=== PATIENT | female | born 1945 | race Caucasian/White ===

== ENCOUNTER 2020-04-17 08:49 | Observation (INO) | payer MEDICARE ==
[~2020-04-17] VITALS: Ht 157.5 cm; Wt 69.4 kg
[~2020-04-17 08:49] MED LIST: ASPIR 8181 M1 PO; BENADRYL25 MG PO; CIPRO500 MG PO; CLARITIN10 M2 PO; FLAGYL500 MG PO; FLONASE 0.05%50 MCG NASAL; MULTIVITAMINS1 EAC7 PO; NORCO 5-325 TA1 EACH PO; ZOFRAN ODT4 MG PO; [UNRECOGNIZED DRUG - REMARK] PO
[2020-04-17 08:58] VITALS: BP 207/81
[2020-04-17 10:13] LABS: URINE BLOOD TRACE (Negative); URINE CLARITY CLEAR; URINE COLOR YELLOW; URINE GLUCOSE-RANDOM NEGATIVE (Negative); URINE KETONES NEGATIVE (Negative); URINE LEUKOCYTES-REFLEX NEGATIVE (Negative); URINE NITRITE-REFLEX NEGATIVE (Negative); URINE PROTEIN 1+ (Negative)
[2020-04-17 10:17] LABS: ICTOTEST (BILI CONFIRMATORY) Negative (Negative); URINE BILIRUBIN 1+ (Negative)
[2020-04-17 10:19] LABS: ABSOLUTE BASOPHILS 0.1 thou/uL (0.0-0.2); ABSOLUTE LYMPHOCYTES 1.2 thou/uL (0.8-5.3); ABSOLUTE MONOCYTES 0.4 thou/uL (0.0-1.2); ABSOLUTE NEUTROPHILS 6.4 thou/uL (1.6-8.1); BASOPHILS 0.9 %; EOSINOPHILS 0.3 %; HEMATOCRIT 44.5 % (37.0-47.0); HEMOGLOBIN 15.9 gm/dL (12.0-15.0); LYMPHOCYTES 14.2 %; MCH 35.7 pg (26.0-34.0); MCHC 35.8 g/dL (28.0-37.0); MCV 99.6 fL (80.0-100.0); MONOCYTES 5.4 %; MPV 6.9 fl. (7.2-11.1); NUCLEATED RBCS 0 /100WBC; PLATELET COUNT* 218 thou/uL (150-400); POLYS 79.2 %; RBC 4.46 mil/uL (4.20-5.00); RDW-CV 12.5 % (10.5-14.5); WBC 8.1 thou/uL (4.0-11.0)
[2020-04-17 10:34] LABS: CALCIUM 8.6 mg/dL (8.5-10.1); POTASSIUM 3.7 mmol/L (3.5-5.1)
[2020-04-17 10:36] LABS: APTT 29.2 Seconds (25.0-31.3)
[2020-04-17 10:45] LABS: ALBUMIN 4.5 g/dL (3.4-5.0); MAGNESIUM 1.9 mg/dL (1.8-2.4); TOTAL BILIRUBIN 0.8 mg/dL (<0.1-1.0); TOTAL PROTEIN 7.4 g/dL (6.4-8.2)
[2020-04-17 11:00] LABS: BE 1.6 mmol/L (-2 to +3); PCO2 35.4 mmHg (35.0-45.0); pH 7.465 (7.340-7.450)
--- NOTE | 2020-04-17 15:15 | EKG ---
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 : 1945 Requested By: Lydia Ortiz Order Number: [id number] MD: Raza Snyder Measurements Intervals Penn Laird Rate: 113 P: 66 CA: 175 QRS: 15 QRSD: 99 T: 34 QT: 326 QTc: 447 Interpretive Statements Sinus tachycardia Consider left atrial enlargement Baseline wander in lead(s) II,III,aVR,aVL,aVF Compared to ECG 07/22/2017 17:25:53 Sinus rate has increased Myocardial infarct finding no longer present Electronically Signed On 04-17-2020 15:15:40 CDT by Raza Snyder [email or web address] <ELECTRONICALLY SIGNED> By: Raza Snyder MD, [facility] 04/17/20 [phone] Raza Snyder MD, [facility] /EPI
[2020-04-17 16:40] VITALS: BP 128/52
[2020-04-17 17:00] VITALS: BP 156/70
--- NOTE | 2020-04-17 18:36 | NUR ---
PT ADMITTED ON TELE FLOOR AT 1630 REPORT RECEIVED FROM NURSE. PT IS AOX4 ON RA. 02 SATURATION 96% RA. VSS. IV FLUID INFUSING ORDERED. DENIES PAIN. CALL LIGHT AT REACH. MEDICATION GIVEN TO PT. WILL CONTINUE TO MONITOR PT.
[2020-04-17 21:41] VITALS: BP 133/65
[2020-04-18] VITALS: BP 142/46
[2020-04-18 04:00] VITALS: BP 148/50
[2020-04-18 05:32] LABS: HEMATOCRIT 37.1 % (37.0-47.0); MCH 36.6 pg (26.0-34.0); MCHC 36.3 g/dL (28.0-37.0); MCV 100.8 fL (80.0-100.0); MPV 7.3 fl. (7.2-11.1); RBC 3.68 mil/uL (4.20-5.00); RDW-CV 12.4 % (10.5-14.5); WBC 4.9 thou/uL (4.0-11.0)
[2020-04-18 05:37] LABS: HEMOGLOBIN 13.5 gm/dL (12.0-15.0)
--- NOTE | 2020-04-18 05:43 | NUR ---
PATIENT HAVING SOME ANXIETY SAYING SHE CANNOT BREATHE AND FEELS CONGESTED. O2 SAT IS 93-95%. ATIVAN GIVEN FOR ANXIETY DURING SHIFT TO HELP CALM FOR SLEEP. SHE IS ABLE TO GET TO THE RESTROOM ON HER OWN. SHE DID NOT REPORT ANY PAIN OR NAUSEA THIS SHIFT UPON SEVERAL ASSESSMENTS. ECHO PLANNED FOR FRIDAY. ON ROOM AIR, ALERT AND ORIENTED X4. RECEIVED ALL MEDS SCHEDULED. WILL CONTINUE TO FOLLOW PLAN OF CARE.
[2020-04-18 05:55] LABS: ALBUMIN 3.2 g/dL (3.4-5.0); CALCIUM 7.6 mg/dL (8.5-10.1); CREATININE 0.8 mg/dL (0.6-1.3); MAGNESIUM 1.8 mg/dL (1.8-2.4); POTASSIUM 3.5 mmol/L (3.5-5.1); TOTAL BILIRUBIN 0.9 mg/dL (<0.1-1.0); TOTAL PROTEIN 5.6 g/dL (6.4-8.2)
[2020-04-18 08:00] VITALS: BP 150/71
[2020-04-18 12:00] VITALS: BP 136/74
[2020-04-18 16:00] VITALS: BP 141/66; BP 142/76
--- NOTE | 2020-04-18 17:51 | NUR ---
CM COMPLETED INITIAL ASSESSMENT TO DISCUSS D/C PLANNING. PT LIVES AT HOME W/SPOUSE. PT HAS NO HX OF HH OR SNF. HOWEVER, PT MAY NEED HH ACCORD TO DOCTOR. PT IS INDEPENDENT W/ADLS. PT DRIVES AND IS ACTIVE. PT HAS NO DMES. CM TO CONT TO FOLLOW.
[2020-04-18 20:00] VITALS: BP 165/72
[2020-04-19] VITALS: BP 116/69
[2020-04-19 04:00] VITALS: BP 181/85
[2020-04-19 05:27] LABS: HEMATOCRIT 37.1 % (37.0-47.0); HEMOGLOBIN 13.2 gm/dL (12.0-15.0); MCHC 35.6 g/dL (28.0-37.0); MCV 101.1 fL (80.0-100.0); MPV 7.4 fl. (7.2-11.1); RBC 3.66 mil/uL (4.20-5.00); RDW-CV 12.5 % (10.5-14.5)
[2020-04-19 05:50] LABS: ALBUMIN 3.2 g/dL (3.4-5.0); CREATININE 0.8 mg/dL (0.6-1.3); MAGNESIUM 1.8 mg/dL (1.8-2.4); POTASSIUM 3.4 mmol/L (3.5-5.1); TOTAL BILIRUBIN 0.5 mg/dL (<0.1-1.0); TOTAL PROTEIN 5.7 g/dL (6.4-8.2)
[2020-04-19 08:00] VITALS: BP 156/82
--- NOTE | 2020-04-19 14:16 | 2DMMODE ---
[place] [address] 2 D/M-MODE ECHOCARDIOGRAM Name: JASON MEYER Room: [address] IN .Jonas.#: [id number] Admission: 04/19/20 Attend Phys: Winter Cardozo, Discharge: Date of : 43 Date of Service: 04/19/20 1416 Report #: [id number] THIS REPORT FOR: cc: JOANN - No family physician/PCP JOANN - No family physician/PCP Raza Snyder MD [facility] ~ APPROVED REPORT Study performed: 04/19/2020 13:23:29 EXAM: Comprehensive 2D, Doppler, and color-flow Echocardiogram Patient Location: In-Patient Room #: [facility] Status: routine BSA: 1.71 HR: 87 bpm BP: 148/50 mmHg Rhythm: NSR Other Information Study Quality: Good Indications Dyspnea 2D Dimensions IVSd: 11.86 (7-11mm) LVOT Diam: 19.47 (18-24mm) LVDd: 50.89 mm PWd: 10.16 (7-11mm) Ascending Ao: 31.46 (22-36mm) LVDs: 22.35 (25-40mm) Aortic Root: 29.41 mm Volumes Left Atrial Volume (Systole) LA ESV Index: 27.50 mL/m2 Aortic Valve AoV Peak Jose.: 1.59 m/s AO Peak Gr.: 10.10 mmHg LVOT Max P.45 mmHg AO Mean Gr.: 5.81 mmHg LVOT Mean P.25 mmHg LVOT Max V: 1.62 m/s AO V2 VTI: 32.25 cm LVOT Mean V: 0.92 m/s REDDY (VTI): 2.81 cm2 LVOT V1 VTI: 30.46 [place] [address] 2 D/M-MODE ECHOCARDIOGRAM Name: JASON MEYER Room: [address] IN ..#: [id number] Admission: 04/19/20 Attend Phys: Winter Cardozo, Discharge: Date of : 43 Date of Service: 04/19/20 1416 Report #: [id number] Mitral Valve E/A Ratio: 0.77 MV Decel. Time: 248.78 ms MV E Max Jose.: 0.84 m/s MV PHT: 72.15 ms MVA (PHT): 3.05 cm2 TDI E/Lateral E': 10.50 E/Medial E': 8.40 Medial E' Jose.: 0.10 m/s Lateral E' Jose.: 0.08 m/s Pulmonary Valve PV Peak Jose.: 1.19 m/s PV Peak Gr.: 5.66 mmHg Tricuspid Valve RAP Estimate: 5.00 mmHg TR Peak Gr.: 36.16 mmHg RVSP: 41.00 mmHg PA Pressure: 41.00 mmHg Left Ventricle The left ventricle is normal size. There is normal LV segmental wall motion. There is normal left ventricular wall thickness. Left ventricular systolic function is normal. The left ventricular ejection fraction is within the normal range. LVEF is 65-70%. Grade I - abnormal relaxation pattern. Right Ventricle The right ventricle is normal size. The right ventricular systolic function is normal. Atria The left atrium size is normal. The right atrium size is normal. Aortic Valve Mild aortic valve sclerosis. Trace aortic regurgitation. There is no aortic valvular stenosis. Mitral Valve The mitral valve is normal in structure. Trace mitral regurgitation. No evidence of mitral valve stenosis. Tricuspid Valve The tricuspid valve is normal in structure. Mild tricuspid regurgitation. Moderate [place] [address] 2 D/M-MODE ECHOCARDIOGRAM Name: JASON MEYER Room: [address]#: [id number] Admission: 04/19/20 Attend Phys: Winter Cardozo, Discharge: Date of : 43 Date of Service: 04/19/20 1416 Report #: [id number] Pulmonic Valve The pulmonary valve is normal in structure. There is no pulmonic valvular regurgitation. Great Vessels The aortic root is normal in size. IVC is normal in size and collapses >50% with inspiration. Pericardium There is no pericardial effusion. <Conclusion> The left ventricle is normal size. Left ventricular systolic function is normal. The left ventricular ejection fraction is within the normal range. LVEF is 65-70%. Grade I - abnormal relaxation pattern. The right ventricle is normal size. The left atrium size is normal. Mild aortic valve sclerosis. Trace aortic regurgitation. There is no aortic valvular stenosis. The mitral valve is normal in structure. Tricupid valve is structurally normal Mild tricuspid regurgitation. Moderate pulmonary hypertension. IVC is normal in size and collapses >50% with inspiration. There is no pericardial effusion. There is normal LV segmental wall motion. <ELECTRONICALLY SIGNED> By: Raza Snyder MD, FACC 04/19/20 [phone] Raaz Snyder MD, FACC /INF
--- NOTE | 2020-04-19 16:10 | NUR ---
Possible for pt to be ready to dc tomorrow; SW to continue to follow to assist with safe dc planning of home wih spouse and maybe HH at dc to be arranged.
[2020-04-19 17:00] VITALS: BP 105/69
[2020-04-19] MEDS ORDERED: DOXYCYCLINE 10100 M2 PO (17:08)
[2020-04-19] MEDS ORDERED: MEDROL4 M1 PO (17:08)
[2020-04-19] MEDS ORDERED: PROAIR HFA8.5 GM INH (17:08)
[2020-04-19] MEDS ORDERED: ALPRAZOLAM 0.0.25 MG PO (17:12)
[2020-04-19 18:06] VITALS: BP 105/69
--- NOTE | 2020-04-19 19:55 | NUR ---
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 SHE WAS JUST FIXATED ON GETTING OUT OF HERE AND TEARFUL. INFORMED DR ZHAO. DC ORDERS RECEIVED. DISCHARGE EDUCATION PROVIDED. PT LEFT THE UNIT AT 1830 WITH HER .
--- NOTE | 2020-04-20 09:21 | CON ---
[address] [address] CONSULTATION Name: JASON MEYER Room: [address]R.#: [id number] Admission: 04/19/20 Attend Phys: Winter Cardozo MD Discharge: 04/19/20 Date of : 43 Report #: [id number] THIS REPORT FOR: //name// cc: JOANN - No family physician/PCP FAM - No family physician/PCP ~ THIS REPORT FOR: //name// CC: [facility] physician/PCP Winter Cardozo MD INDICATION: Progressive dyspnea on exertion and chest discomfort. HISTORY OF PRESENT ILLNESS: The patient is a very pleasant 74-year-old white female with no prior cardiac history. The patient was admitted through the Emergency Room yesterday with an episode of nausea and stomach upset, without true vomiting. The patient states that she was choking and gagging, but unable to vomit. She reports that she has had this infrequently. She also notes over the last several months, increasing dyspnea on exertion as well as paroxysmal nocturnal dyspnea, almost nightly. She denies any significant swelling or change in weight. She does have intermittent chest achiness. She was not sure whether this was associated with exertion or not. The symptoms usually last several minutes. Occasionally associated with some diaphoresis. Her most prominent symptom has been dyspnea. She denies any history of dyslipidemia, hypertension, diabetes or family history of coronary artery disease. She does smoke a half a pack of cigarettes daily. PAST MEDICAL HISTORY: 1. Paroxysmal atrial tachycardia as a young lady in her teens and 20s. PAST SURGICAL HISTORY: 1. Cholecystectomy. 2. x 2. 3. Basal cell removed from her nose. 4. Appendectomy. 5. Tonsillectomy. FAMILY HISTORY: The patient's father had a stroke, but there was no history of premature coronary artery disease. SOCIAL HISTORY: The patient is . She lives with her . 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 She smokes half a pack of cigarettes daily. She drinks a moderate amount of alcohol daily. ALLERGIES: [place] [address] CONSULTATION Name: JASON MEYER Room: [address]#: [id number] Admission: 04/19/20 Attend Phys: Winter Cardozo MD Discharge: 04/19/20 Date of : 43 Report #: [id number] HOME MEDICATIONS: None. REVIEW OF SYSTEMS: A 14-point review of systems is positive for cough that is nonproductive, occasional wheezing, palpitations, chest discomfort as outlined above, dyspnea on exertion, paroxysmal nocturnal dyspnea, history of heart murmur as a child, hyperthyroid in her 20s, seasonal allergies, medical allergies as outlined above, history of depression and anxiety. Some mild arthritis. She wears glasses. No acute visual changes. She has decreased hearing and she wears partial dentures. PHYSICAL EXAMINATION: VITAL SIGNS: Blood pressure 150/71, pulse is 84 and regular. GENERAL: This is a very pleasant elderly female in no distress. Mood and affect appropriate. HEENT: Extraocular muscles intact. Mucous membranes are moist. NECK: Shows no jugular venous distention. I do not appreciate carotid bruits. CHEST: Reveals diminished breath sounds throughout with prolonged expiration. I do not appreciate wheezes or rales. CARDIOVASCULAR: Reveals a regular rhythm with normal S1 and S2. I do not appreciate gallop or murmur. ABDOMEN: Reveals normal bowel sounds. The abdomen is soft, nontender. EXTREMITIES: Shows no edema. SKIN: Dry. LABORATORY DATA: A 12-lead EKG shows sinus rhythm without acute ST or T-wave abnormality. Troponins are negative x 3 sets. NT-proBNP was unremarkable. Chest x-ray shows no acute cardiopulmonary abnormality. IMPRESSION AND RECOMMENDATIONS: 1. Chest discomfort with some features to suggest possible angina. The patient has no history of documented coronary artery disease. At this point in time, I would be in favor of noninvasive stress testing. Further cardiac evaluation will be pending on the results of that study. 2. Dyspnea on exertion. The patient has significantly abnormal lung sounds on physical exam. I suspect she has some element of COPD. Could be an anginal equivalent. Stress testing ordered as outlined above. I am also ordering an echocardiogram to evaluate underlying left [place] [address] CONSULTATION Name: JASON MEYER Room: [address]#: [id number] Admission: 04/19/20 Attend Phys: Winter Cardozo MD Discharge: 04/19/20 Date of : 43 Report #: [id number] function. 3. Tobacco use. Smoking cessation advised. <ELECTRONICALLY SIGNED> By: Orville Leung MD, KIRILL 04/20/20 0921 1544 1558Miccata Leung MD, KIRILL /nt
--- NOTE | 2020-04-20 16:02 | CARDNUC ---
[place] [address] CARDIAC NUCLEAR IMAGING REPORT Name: MITCHJASON Emil Room: [address] Kimmy Urena#: [id number] Admission: 04/17/20 Attend Phys: Winter Cardozo, Discharge: 04/19/20 Date of : 43 Date of Service: 04/20/20 1602 Report #: [id number] THIS REPORT FOR: cc: FAM - No family physician/PCP FAM - No family physician/PCP Orville Leung MD [facility] ~ APPROVED REPORT Imaging Protocol: REST ONLY Study performed: 04/18/2020 15:05:00 Indication: Chest pain, Dyspnea Patient Location: In-Patient Stress Tech: Hilary Rose Stress Nurse: Giana Landa RN NM Tech:PAYAL Corona Ht: 5 ft 2 in Wt: 153 lbs BSA: 1.71 m2 BMI: 27.98 Rhythm: NSR Medical History Medical History: No history of CAD Medications: No cardiac meds Allergies: Ciprofloxacin, morphine, sulfa drugs Cardiac Risk Factors: Tobacco use Previous Cardiac Procedures: None Exercise History: Sedentary Resting Data Rest SPECT myocardial perfusion imaging was performed in supine position 30 minutes following the intravenous injection of 10.5 mCi of Tc-99m Sestamibi. Time of rest injection: 809 Date: 04/20/2020 The images were gated to evaluate regional wall motion and calculate left ventricular ejection fraction. Administration Route: IV Stress Test Details Stress Test: Patient did not complete the stress portion of the stress test. HR Max Heart Rate (APMHR): 145 bpm Target HR (85% APMHR): 123 [place] [address] CARDIAC NUCLEAR IMAGING REPORT Name: PURVIKAROLYNJASON Emil [address] [id number] Admission: 04/17/20 Attend Phys: Winter Cardozo, Discharge: 04/19/20 Date of : 43 Date of Service: 04/20/20 160 Report #: [id number] ECG Study Quality Study: Resting only Perfusion Resting perfusion images show uniform uptake of the radioisotope throughout the myocardium without significant defect. Wall Motion Resting gated images show normal LV systolic function with no evidence of wall motion abnormality. Nuclear Conclusion The stress portion of the test was not completed. Resting scan appeared fairly unremarkable. <ELECTRONICALLY SIGNED> By: Orville Leung MD, FACC 04/20/201601 01 1602 Orville Leung MD, FACC /INF
--- NOTE | 2020-04-20 21:36 | CON ---
[address] [address] CONSULTATION Name: MITCHSUZEY Emil Room: [address] Kimmy Urena#: [id number] Admission: 04/17/20 Attend Phys: Winter Cardozo MD Discharge: 04/19/20 Date of : 43 Report #: [id number] THIS REPORT FOR: //name// cc: JOANN - No family physician/PCP JOANN - No family physician/PCP ~ THIS REPORT FOR: //name// CC: JOANN physician/PCP Winter Cardozo DATE OF SERVICE: 04/19/2020 CONSULT REQUESTED BY: Dr. Cardozo. INDICATION FOR CONSULTATION: Longstanding dyspnea and ground-glass opacity in lungs. HISTORY OF PRESENT ILLNESS: This is a 74-year-old female with past medical history as mentioned below. The patient appears to have COPD but she has not been previously diagnosed. The patient has an extensive history of smoking and is a current smoker. The patient also has been in significant stress at home. The patient reports that there has been recent progressive increase in her shortness of breath. She has also had a cough. There is not much sputum production. On presentation, the patient also had epigastric pain, some of which came into the upper chest as well. This pain has now subsided. The patient does however report that she has had a longstanding history of clear nasal discharge from her nose, which has not changed recently. There is no sore throat. She is not febrile. She is no longer having any chest pain. There is no swelling of lower extremities. There is no calf pain, although she has had some varicose veins. The patient appears to have poor sleep hygiene, she has significantly disturbed sleep at night as well as sleepiness during the day, although she does not doze off unintentionally. She also has tiredness and fatigue during the day. She says what she is describing as fatigue may in fact be sleepiness. The patient says that she usually sleeps on her stomach. The patient says that she is anxious. She answered to the negative for 12 other questions asked for review of systems: The patient is reported to initially had a stomach upset and nausea. She did not have these complaints at this time. PAST MEDICAL HISTORY: Paroxysmal atrial tachycardia when young in her 20s, cholecystectomy, x 2, basal cell carcinoma removed from her nose, appendectomy and tonsillectomy. The patient has recently had an echocardiogram performed, which shows a left ventricular ejection fraction of 65-70% with mild elevation in right heart pressures [place] [address]. [place] [address] CONSULTATION Name: JASON MEYER Room: [address] Ayanna#: [id number] Admission: 04/17/20 Attend Phys: Winter Cardozo MD Discharge: 04/19/20 Date of : 43 Report #: [id number] SOCIAL HISTORY: There is an extensive history of smoking. The patient has smoked up to 2 packs a day at one point, she says that now she is down to only 7 or 8 cigarettes a day. She does drink alcohol daily. I am unable to quantify her alcohol intake exactly, no known history of illegal drug use. CURRENT MEDICATIONS: In [facility] reviewed. HOME MEDICATIONS: In [facility] reviewed. FAMILY HISTORY: Father had a stroke. ALLERGIES: REPORTED TO BE ALLERGIC TO SULFONAMIDE ANTIBIOTICS AND CIPRO. SHE HAS HAD EITHER AN ADVERSE REACTION OR ALLERGY TO MORPHINE. PHYSICAL EXAMINATION: GENERAL: Alert, awake and oriented, was mildly anxious, was walking around in the hallways with a pulse of around 80 at the time of my examination. VITAL SIGNS: Blood pressure has been labile from 116/69 to 181/85. She is afebrile, respiratory rate is 18. HEENT: Head is normocephalic and atraumatic. Pupils are equal and reactive. There is no throat erythema. Airway is Mallampati 4. NECK: Does not show raised JVP, asymmetry, mass or lymph nodes. CHEST: Symmetrical expansion on inspection and palpation. On auscultation, breath sounds are bilaterally decreased, but equal. There are occasional rales at bilateral lung bases. HEART: Regular. There is no murmur. ABDOMEN: Soft and nontender. EXTREMITIES: Lower extremities show minimal edema only. There is no calf tenderness. There are changes consistent with chronic venous insufficiency. SKIN: However, is dry and intact. NEUROLOGICAL: Moves all extremities bilaterally equally and spontaneously with no focal deficit identified. LABORATORY DATA: The patient's CBC as well as chemistries are in [facility] and these are reviewed. The patient's arterial blood gas, which initially did show mild hypoxemia on room air in [facility] reviewed. COVID-19 PCR as well as antigen are negative. Urinalysis is in [facility] reviewed. D-dimer was 0.45. The patient did have a CT chest with IV contrast, but not with PE protocol. Lung imaging is as below. I reviewed myself and compared with the previous CT of the abdomen and pelvis, no PE is mention in the report. The patient's D-dimer was not elevated as above. I reviewed the CT abdomen and pelvis report as well. ASSESSMENT AND PLAN: 1. Acute respiratory insufficiency/shortness of breath. In the background, the patient appears to have COPD as well as obstructive sleep apnea. There is a [address] [address] CONSULTATION Name: JASON MEYER Emil Room: [address] Kimmy Urena#: [id number] Admission: 04/17/20 Attend Phys: Winter Cardozo MD Discharge: 04/19/20 Date of : 43 Report #: [id number] small infiltrate in the right middle lobe and there is a significant component of stress in her complaints as well. At this time, the patient appears to be stable for discharge from a pulmonary point of view, would defer evaluation from a cardiac point of view to the Cardiology Service. Recommend obtaining an ambulatory pulse oximetry prior to her discharge. 2. Pulmonary infiltrates, most of these appear to be old scarring compared with the previous CT of the abdomen and pelvis; however, there is a small ground-glass infiltrate in the right mid zone, which is new. This is consistent with atypical or viral pneumonia. The patient notes that the patient's COVID-19 is negative. Considering that she has AN ALLERGY TO CIPROFLOXACIN, I would recommend treating her with azithromycin, doxycycline would be an alternate to azithromycin. I suggest a repeat CT in about 1 month. I will be happy to see her in a month and then evaluate further. 3. Chronic obstructive pulmonary disease. I suggest treating her with a prednisone taper and p.r.n. albuterol. Smoking cessation will be recommended. I can phone our office with it, decide upon her long-term therapy. Considering her history of significant allergies, I may consider Breo long-term. 4. Hypersomnia/sleep disturbances. It appears based on clinical grounds that she has obstructive sleep apnea, I offered to her to set up a sleep study now. The patient wants to hold off and discussed with me further on her next office visit and I will be happy to review this at that point. 5. Allergic rhinitis, I recommend Singulair 10 mg daily, long-term. This may help her breathing as well. We will review further in a month. Thanks for this consultation. <ELECTRONICALLY SIGNED> By: Kennedy Mcclendon MD 04/20/20 2136 1508 1834Agay Mcclendon MD /nt
--- NOTE | 2020-04-21 11:23 | CON ---
[address] [address] CONSULTATION Name: JASON MEYER Room: [address] Kimmy Urena#: [id number] Admission: 04/17/20 Attend Phys: Winter Cardozo MD Discharge: 04/19/20 Date of : 43 Report #: [id number] THIS REPORT FOR: //name// cc: JOANN - No family physician/PCP [facility] - No family physician/PCP ~ THIS REPORT FOR: //name// CC: [facility] physician/PCP Winter Cardozo DICTATED BY: Barbara Schwab [facility] DATE OF SERVICE: 04/18/2020 The patient does not have a PCP. Please note at the time of this dictation, the patient was seen and physically examined by myself. HISTORY OF PRESENT ILLNESS: This is a 74-year-old female who presented to the Emergency Room mainly with complaints of shortness of air. She states she had no nausea or vomiting and no abdominal pain at that particular time. She has never seen a GI doctor and does not plan on having any upper or lower scopes done at this time. The patient states she has longstanding anxiety, which has gotten worse over the last 5 years after she had resuscitated her at home and she cares for him now along with her [id number] mother as well. She has had lots of stressors related to this and 5 years ago, she started having a glass of wine or maybe 2 or a cocktail every night to help calm her nerves and to help her go to sleep at night. Otherwise, she states when she had her gallbladder out last year, she had a lot of explosive diarrhea, which has improved. She realized eating certain foods, makes it worse, but she would rather have that versus constipation. She states it is intermittent. She does not notice any bright red blood or any melanotic stool. She denies any issues with any acid reflux or difficulty swallowing or abdominal pain at this time. ALLERGIES: SULFA, MORPHINE, AND CIPRO. MEDICATIONS FROM HOME: None. PAST MEDICAL HISTORY: Anxiety. PAST SURGICAL HISTORY: Cholecystectomy. FAMILY HISTORY: Negative for any GI or female cancers. SOCIAL HISTORY: She will occasionally have smokes cigarettes. Alcohol daily, [place] [address] CONSULTATION Name: JASON MEYER Room: [address] Kimmy Urena#: [id number] Admission: 04/17/20 Attend Phys: Winter Cardozo MD Discharge: 04/19/20 Date of : 43 Report #: [id number] 1-2 drinks usually. Denies any illegal drug use. REVIEW OF SYSTEMS: Twelve-point review of systems is essentially negative except what is mentioned in the HPI. PHYSICAL EXAMINATION: VITAL SIGNS: Temperature 36.7, pulse 84, respirations 16, blood pressure 150/71. HEART: Regular rate and rhythm. LUNGS: Clear. ABDOMEN: Soft. Positive bowel sounds in all 4 quadrants with no masses or tenderness noted. LABORATORY DATA: Hemoglobin 13.5, white count 4.4, platelets 155. Lipase was 99. LFTs on admission were slightly elevated of ALT and AST. They have come down. Today total bilirubin 0.9, alkaline phosphatase 75, ALT 43, AST is 39. CT of the abdomen and pelvis shows diverticulosis and a midline ventral hernia. GFR is 70. IMPRESSION: 1. Bile acid diarrhea intermittently. 2. Anxiety. 3. Elevated LFTs, resolving. 4. Alcohol use regularly. PLAN: The patient does not want any GI intervention at this time and states she is not having any GI problems and will sign off. Thank you for allowing us to participate in this patient's care. Please do not hesitate to call with any questions in regard to this consult. Agree with above assessment and plan by Barbara Schwab. <ELECTRONICALLY SIGNED> By: Monty Seaman MD 04/21/20 1123 1022 1034Monty Seaman MD /nt
== END 2020-04-19 20:03 | disposition home or self-care (01) ==
LOC: M.ERS 08:49 → M.TBA-ER 14:09 → M.2W 14:09
PROVIDERS: Personal Emergency Response Attendant; ADMIT Internal Medicine; ATTEND Internal Medicine
DX: J96.01 Acute respiratory failure with hypoxia (principal); F41.9 Anxiety disorder, unspecified; R10.13 Epigastric pain; R11.0 Nausea; I47.1 Supraventricular tachycardia; E03.9 Hypothyroidism, unspecified; J44.9 Chronic obstructive pulmonary disease, unspecified; J30.9 Allergic rhinitis, unspecified; Z87.891 Personal history of nicotine dependence; Z79.899 Other long term (current) drug therapy; Z20.818 Contact with and (suspected) exposure to other bacterial communicable diseases

== ENCOUNTER 2021-10-08 19:59 | Observation (INO) | payer MEDICARE ==
[~2021-10-08] VITALS: Ht 160 cm; Wt 63.5 kg
--- NOTE | ~2021-10-08 | PROC ---
[address] [address] PROCEDURE REPORT Name: JASON MEYER Room: [address] IN ..#: [id number] Admission: 10/08/21 Attend Phys: Winter Cardozo MD Discharge: 10/10/21 Date of : 43 Report #: [id number] THIS REPORT FOR: cc: FAM - No family physician/PCP FAM - No family physician/PCP [facility],Medical Records Staff ~ For GI report, please see the Provation report in Perceptive 7 content. By: 0654Medical Records Staff JOSAFAT /DAWSON
--- NOTE | ~2021-10-08 | PROC ---
[address] [address] PROCEDURE REPORT Name: JASON MEYER Room: [address] IN ..#: [id number] Admission: 10/08/21 Attend Phys: Winter Cardozo MD Discharge: 10/10/21 Date of : 43 Report #: [id number] THIS REPORT FOR: cc: FAM - No family physician/PCP FAM - No family physician/PCP [facility],Medical Records Staff ~ For GI report, please see the Provation report in Perceptive 7 content. By: 0657Medical Records Staff SANDY /DAWSON
[~2021-10-08 19:59] MED LIST changes: +ALPRAZOLAM 0.0.25 MG PO; +DOXYCYCLINE 10100 M2 PO; +MEDROL4 M1 PO; +PROAIR HFA8.5 GM INH
[2021-10-08 20:12] VITALS: BP 155/68
[2021-10-08] MEDS ORDERED: BENADRYL25 MG PO (20:17)
[2021-10-08 20:50] LABS: URINE BILIRUBIN NEGATIVE (Negative); URINE BLOOD 1+ (Negative); URINE CLARITY CLEAR; URINE COLOR YELLOW; URINE GLUCOSE-RANDOM NEGATIVE (Negative); URINE KETONES 1+ (Negative); URINE LEUKOCYTES-REFLEX NEGATIVE (Negative); URINE NITRITE-REFLEX NEGATIVE (Negative); URINE PROTEIN 1+ (Negative); URINE SPECIFIC GRAVITY >= 1.030 (1.005-1.030); URINE UROBILINOGEN 0.2 E.U./dl (0.2-1.0)
[2021-10-08 20:55] LABS: HEMATOCRIT 42.9 % (37.0-47.0); HEMOGLOBIN 14.8 gm/dL (12.0-15.0); MCH 33.9 pg (26.0-34.0); MCHC 34.4 g/dL (28.0-37.0); MCV 98.5 fL (80.0-100.0); MPV 6.3 fl. (7.2-11.1); NUCLEATED RBCS 0 /100WBC; PLATELET COUNT* 285 thou/uL (150-400); RBC 4.36 mil/uL (4.20-5.00); RDW-CV 12.8 % (10.5-14.5)
[2021-10-08 20:57] LABS: AMP/METHAMP Negative (Negative); BARBITURATES Negative (Negative); BENZODIAZEPINES Negative (Negative); COCAINE Negative (Negative); METHADONE Negative (Negative); OPIATES Negative (Negative); PCP Negative (Negative); THC POSITIVE (Negative)
[2021-10-08 21:08] LABS: BACTERIA-REFLEX 1-9 Few /HPF (None Seen); CRYSTALS None Seen /LPF (None Seen); HYALINE CASTS 4-10 Moderate /LPF (None Seen); MUCUS 0-3 Light strn/LPF (None Seen); SQUAMOUS >10 Many /LPF (0-3); URINE RBC 3-10 Few /HPF (0-2); URINE WBC-REFLEX 0-5 Rare /HPF (0-5)
[2021-10-08 21:13] LABS: CALCIUM 9.2 mg/dL (8.5-10.1); POTASSIUM 3.4 mmol/L (3.5-5.1)
[2021-10-08 21:22] LABS: ALBUMIN 4.3 g/dL (3.4-5.0); TOTAL BILIRUBIN 0.5 mg/dL (<0.1-1.0); TOTAL PROTEIN 7.5 g/dL (6.4-8.2)
[2021-10-08 21:39] LABS: ABSOLUTE LYMPHOCYTES 0.8 thou/uL (0.8-5.3); ABSOLUTE MONOCYTES 0.6 thou/uL (0.0-1.2); ABSOLUTE NEUTROPHILS 19.5 thou/uL (1.6-8.1); PLATELET ESTIMATE ADEQUATE
[2021-10-08 21:40] LABS: HYPOCHROMASIA Occasional; POLYCHROMASIA Occasional
[2021-10-09 03:02] VITALS: BP 122/68
[2021-10-09 08:00] VITALS: BP 143/67
[2021-10-09 08:27] LABS: ABSOLUTE LYMPHOCYTES 1.2 thou/uL (0.8-5.3); ABSOLUTE MONOCYTES 0.7 thou/uL (0.0-1.2); ABSOLUTE NEUTROPHILS 7.4 thou/uL (1.6-8.1); BASOPHILS 0.4 %; EOSINOPHILS 0.1 %; HEMATOCRIT 35.9 % (37.0-47.0); LYMPHOCYTES 12.4 %; MCH 34.3 pg (26.0-34.0); MCHC 34.7 g/dL (28.0-37.0); MCV 98.7 fL (80.0-100.0); MPV 6.3 fl. (7.2-11.1); NUCLEATED RBCS 0 /100WBC; PLATELET COUNT* 229 thou/uL (150-400); POLYS 80.1 %; RBC 3.64 mil/uL (4.20-5.00); RDW-CV 12.9 % (10.5-14.5); WBC 9.3 thou/uL (4.0-11.0)
[2021-10-09 08:35] LABS: HEMOGLOBIN 12.5 gm/dL (12.0-15.0)
[2021-10-09 08:39] LABS: ALBUMIN 3.6 g/dL (3.4-5.0); CALCIUM 7.8 mg/dL (8.5-10.1); CREATININE 0.9 mg/dL (0.6-1.3); POTASSIUM 4.1 mmol/L (3.5-5.1); TOTAL BILIRUBIN 0.6 mg/dL (<0.1-1.0); TOTAL PROTEIN 6.2 g/dL (6.4-8.2)
[2021-10-09 10:45] VITALS: BP 143/67
--- NOTE | 2021-10-09 13:13 | EKG ---
[place] [address] ELECTROCARDIOGRAM REPORT Name: JASON MEYER Room: [place] [address] ADM IN .R.#: [id number] Admission: 10/08/21 Attend Phys: Winter Cardozo, Discharge: Date of : 43 Date of Service: 10/09/21 1058 Report #: [id number] THIS REPORT FOR: //name// [facility] Test Date: 2021-10-09 Test Time: 10:58:13 Pat Name: JASON MITCH Department: Room: [place] [address] Gender: F [employer] Car Driver: Gloria GIL RN : 1945 Requested By: Winter Cardozo Order Number: [id number] MD: Orville Leung Measurements Intervals Nikolai Rate: 80 P: 76 FL: 168 QRS: 3 QRSD: 84 T: 169 QT: 357 QTc: 412 Interpretive Statements Sinus rhythm Inferior infarct, old Compared to ECG 04/17/2020 08:54:52 Myocardial infarct finding now present Sinus tachycardia no longer present Electronically Signed On 10-09-2021 13:13:24 [employer]ORAT[employer] SPECIALIST by Orville Leung [email or web address] <ELECTRONICALLY SIGNED> By: Orville Leung MD, FACC 10/09/21 1313 1058 1058 Orville Leung MD, FAC /EPI
[2021-10-09 21:15] VITALS: BP 116/45
[2021-10-10 05:31] LABS: ABSOLUTE EOSINOPHILS 0.1 thou/uL (0.0-0.7); ABSOLUTE LYMPHOCYTES 1.1 thou/uL (0.8-5.3); ABSOLUTE MONOCYTES 0.6 thou/uL (0.0-1.2); ABSOLUTE NEUTROPHILS 5.9 thou/uL (1.6-8.1); BASOPHILS 0.4 %; EOSINOPHILS 0.9 %; HEMATOCRIT 32.3 % (37.0-47.0); HEMOGLOBIN 11.3 gm/dL (12.0-15.0); LYMPHOCYTES 14.5 %; MCH 34.7 pg (26.0-34.0); MCHC 35.1 g/dL (28.0-37.0); MONOCYTES 7.3 %; MPV 6.3 fl. (7.2-11.1); NUCLEATED RBCS 0 /100WBC; PLATELET COUNT* 175 thou/uL (150-400); POLYS 76.9 %; RBC 3.26 mil/uL (4.20-5.00); RDW-CV 12.9 % (10.5-14.5); WBC 7.7 thou/uL (4.0-11.0)
[2021-10-10 05:41] LABS: CALCIUM 8.3 mg/dL (8.5-10.1); CREATININE 0.8 mg/dL (0.6-1.3); POTASSIUM 3.7 mmol/L (3.5-5.1)
[2021-10-10 08:00] VITALS: BP 154/63
[2021-10-10 16:45] VITALS: BP 154/63
[2021-10-10 16:56] VITALS: BP 154/63
[2021-10-11 10:23] VITALS: BP 154/63
--- NOTE | 2021-10-12 12:06 | PATH ---
[address] [address] PATHOLOGY RPT PROCEDURE Name: JASON MEYER Room: [address] Kimmy Urena#: [id number] Admission: 10/08/21 Date of : 43 Discharge: 10/10/21 Report #: [id number] Path Case #: [id number] [facility] Accession Number: [id number] . 01 Material submitted: . PART A: cecum - CECUM POLYP PART B: colon - PROXIMAL ASCENDING COLON POLYP X3. Modifiers: proximal, ascending PART C: sigmoid colon - SIGMOID COLON POLYP . 01 Clinical history: . COLONOSCOPY . 02 Diagnosis: A. Cecum polyp: - Tubular adenoma, negative for high-grade dysplasia. . B. Proximal ascending colon polyp (x 3): - Multiple fragments of tubular adenoma(s), negative for high-grade dysplasia. . C. Sigmoid colon polyp: - Hyperplastic polyp. (MILKA:pit; 10/12/2021) QTP 10/12/2021 1037 Local . 02 Electronically signed: . Toby Posadas MD, Pathologist NPI- [id number] . 01 Gross description: . A. The specimen is received in formalin, labeled "Jason Meyer, cecal polyp". Received is a segment of pale dickens tissue measuring 0.2 cm in maximum dimensions. The specimen is submitted entirely in cassette A1. . B. The specimen is received in formalin, labeled "Jason Meyer, proximal ascending colon". The specimen is additionally labeled on the requisition as, "proximal ascending colon polyp x3". Received are multiple segments of pale dickens tissue ranging in size from 0.2-0.8 cm in maximum dimensions. The specimen is submitted entirely in cassette B1. . C. The specimen is received in formalin, labeled "Jason Meyer, sigmoid colon polyp". Received is a segment of red-brown tissue measuring 0.8 x 0.8 x 0.5 cm in greatest dimensions. The surgical margin is inked and the segment is bisected. The specimen is submitted entirely in cassette C1. (CAA; 10/11/2021) QAC/QAC 10/11/2021 0922 [facility] . [address] [place] [address] PATHOLOGY RPT PROCEDURE Name: JASON MEYER Room: [address] Kimmy Urena#: [id number] Admission: 10/08/21 Date of : 43 Discharge: 10/10/21 Report #: [id number] Path Case #: [id number] Pathologist provided ICD-10: D12.0, D12.2, K63.5 . 02 CPT . 954561, 667634, 707086 Specimen Comment: A courtesy copy of this report has been sent to [phone] Specimen Comment: [phone] Specimen Comment: Report sent to / DR NO Performed at: [address], [place], [place] [id number] MD Álvaro Goodrich MD Phone: [phone] Performed at: [facility] [address], [place], [place] [id number] MD Toby Posadas MD Phone: [phone]
== END 2021-10-10 18:00 | disposition home health service (06) ==
LOC: M.ERS 19:59 → M.2W 23:16 → M.TBA-ER 23:16 → M.2W 23:16 → M.TBA 23:16 → M.TBA-ER 23:16 → M.TBA 10-09 10:29 → M.2W 10-09 14:34
PROVIDERS: Internal Medicine; Personal Emergency Response Attendant; ADMIT Internal Medicine; ATTEND Internal Medicine
DX: K21.01 Gastro-esophageal reflux disease with esophagitis, with bleeding (principal); K43.0 Incisional hernia with obstruction, without gangrene; Z20.822 Contact with and (suspected) exposure to COVID-19; K63.5 Polyp of colon; K29.70 Gastritis, unspecified, without bleeding; K22.10 Ulcer of esophagus without bleeding; K57.32 Diverticulitis of large intestine without perforation or abscess without bleeding; K22.2 Esophageal obstruction; F43.10 Post-traumatic stress disorder, unspecified; E03.9 Hypothyroidism, unspecified; F12.90 Cannabis use, unspecified, uncomplicated; F17.210 Nicotine dependence, cigarettes, uncomplicated; K52.9 Noninfective gastroenteritis and colitis, unspecified; F41.9 Anxiety disorder, unspecified; K64.4 Residual hemorrhoidal skin tags; Z90.49 Acquired absence of other specified parts of digestive tract; Z88.6 Allergy status to analgesic agent; Z88.1 Allergy status to other antibiotic agents; Z88.2 Allergy status to sulfonamides; Z79.899 Other long term (current) drug therapy

== ENCOUNTER 2021-10-22 11:27 | Emergency (ER) | payer MEDICARE ==
[~2021-10-22] VITALS: Ht 152.4 cm; Wt 72.6 kg
[2021-10-22] MEDS ORDERED: HYDROCODON-ACE1 EAC7 PO (13:41)
[2021-10-22 14:32] VITALS: BP 193/104
== END 2021-10-22 14:33 | disposition home or self-care (01) ==
LOC: M.ERS 11:27
DX: S22.41XA Multiple fractures of ribs, right side, initial encounter for closed fracture (principal); E03.9 Hypothyroidism, unspecified; F41.9 Anxiety disorder, unspecified; F17.210 Nicotine dependence, cigarettes, uncomplicated; Z98.890 Other specified postprocedural states; Z90.49 Acquired absence of other specified parts of digestive tract; Z79.899 Other long term (current) drug therapy; Z88.8 Allergy status to other drugs, medicaments and biological substances; Z88.1 Allergy status to other antibiotic agents; Z88.2 Allergy status to sulfonamides; W17.89XA Other fall from one level to another, initial encounter; Y93.89 Activity, other specified; Y92.89 Other specified places as the place of occurrence of the external cause; Y99.8 Other external cause status